=== PATIENT | male | born 1995 | race Caucasian/White ===

== ENCOUNTER 2016-10-18 11:04 | Emergency (ER) | payer MEDICAID ==
[2016-10-18 11:09] VITALS: TEMP 98.1; O2SAT 98
[2016-10-18] MEDS ORDERED: NS 1,000 ML IV ONE (11:16)
[2016-10-18 11:28] LABS: % IMMATURE GRANULYOCYTES 1.3 % (0.0-1.1); ABSOLUTE NRBC COUNT 0.05 10^3/uL (0-0.01); ADD DIFF? NO; ADD MORPH? NO; ADD SCAN? NO; ATYPICAL LYMPHOCYTE FLAG 20 (0-99); FRAGMENT RBC FLAG 20 (0-99); HEMATOCRIT 34.8 % (40.0-51.0); HEMOGLOBIN 11.3 g/dL (13.7-17.5); LEFT SHIFT FLG 40 (0-99); LIPEMIA HEMOLYSIS FLAG 80 (0-99); MEAN CELL HEMOGLOBIN 25.2 pg (27.9-34.1); MEAN CELL HEMOGLOBIN CONCENTR. 32.5 g/dL (32.4-36.7); MEAN CELL VOLUME 77.7 fL (81.5-99.8); MEAN PLATELET VOLUME 10.5 fL (8.7-11.7); NRBC-AUTO% 0.2 % (0.0-0.2); PLATELET CLUMPS FLAG 10 (0-99); PLATELET COUNT 605 10^3/uL (150-400); RED BLOOD CELL COUNT 4.48 10^6/uL (4.40-6.38); RED CELL DISTRIBUTION WIDTH 14.3 % (11.5-15.2)
[2016-10-18 11:38] LABS: INR 1.11 (0.83-1.16); PROTIME(PATIENT) 14.2 SEC (12.0-15.0)
[2016-10-18 11:39] LABS: APTT 29.3 SEC (23.0-38.0)
[2016-10-18 11:44] LABS: ANION GAP 19 mEq/L (8-16); CARBON DIOXIDE 25 mEq/l (22-31); CHLORIDE 92 mEq/L (97-110); GLOMERULAR FILTRATION RATE > 60; GLUCOSE 139 mg/dL (70-100); POTASSIUM 3.9 mEq/L (3.5-5.2); SODIUM 136 mEq/L (134-144)
--- NOTE | 2016-10-18 11:52 | EDPHY ---
HPI/HX/ROS/PE/MDM Narrative: CHIEF COMPLAINT: Ulcerative colitis flare HPI: The patient is a 21 y/o male, with a history of ulcerative colitis, complaining of an ulcerative colitis flare onset at the end of July and worsening this month. He initially noticed looser stool around Thanksgiving and stress through the holiday season caused symptoms to become more frequent. For the last two weeks he's had frequent bloody bowel movements and wakes up with nausea. He denies fever. He has associated intermittent 2/10 abdominal pain underneath his ribs that is generally worse in the morning. His symptoms feel exactly the same as previous flares. He has not had a flare for over a year and his last Remicade infusion was about one year ago. He plans to see his GI tomorrow. REVIEW OF SYSTEMS: Aside from elements discussed in the HPI, a comprehensive 10-point review of systems was reviewed and is negative. PMH: Ulcerative colitis previously on Remicade SOCIAL HISTORY: Lives in [place]. Employed. PHYSICAL EXAM: General:Patient is alert, in no acute distress. ENT:Eyes are normal to inspection. ENT inspection normal. Neck: Normal inspection. Full range of motion. Respiratory:No respiratory distress. Breath sounds normal bilaterally. Cardiovascular: Tachycardic regular rate and rhythm. Strong peripheral pulses. Normal cap refill. Abdomen:The abdomen is nontender to palpation. There are no peritoneal signs. There are normal bowel sounds. Back: Normal to inspection. No tenderness to palpation. Skin: Normal color. No rash. Warm and dry. Extremities: Normal appearance. Full range of motion. Neuro: Oriented x3. Normal motor function. Normal sensory function. ED Course: IV established. Labs drawn including CBC, CHEM, PTPTT. 1L IV NS administered. Study: CT of the Abdomen Indication: Pain Results: CT scan of the abdomen was obtained. The results of the study are Features of ulcerative colitis of the sigmoid colon. Otherwise negative CT examination of the abdomen and pelvis. The study was read by the radiologist, Dr. Valadez. I viewed the images myself on the PACS system. 1320: Consulted with Dr. Pastrana, GI. She recommends discharging him on prednisone and follow up as an outpatient as scheduled. MDM: This patient presents with signs and symptoms of ulcerative colitis flare. White blood cell count was elevated which prompted CT, but thankfully this is negative for acute process. 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 We discussed strict return precautions. Patient is comfortable with the plan to be discharged home. - Data Points Laboratory Results: Laboratory Results 10/18/16 11:15 10/18/16 11:15 10/18/16 11:15 WBC 23.32 H 10^3/uL (3.80-9.50) RBC 4.48 10^6/uL (4.40-6.38) Hgb 11.3 L g/dL (13.7-17.5) Hct 34.8 L % (40.0-51.0) MCV 77.7 L fL (81.5-99.8) MCH 25.2 L pg (27.9-34.1) MCHC 32.5 g/dL (32.4-36.7) RDW 14.3 % (11.5-15.2) Plt Count 605 H 10^3/uL (150-400) MPV 10.5 fL (8.7-11.7) Neut % (Auto) 79.2 H % (39.3-74.2) Lymph % (Auto) 6.7 L % (15.0-45.0) [place] % (Auto) 10.8 % (4.5-13.0) Eos % (Auto) 1.4 % (0.6-7.6) Baso % (Auto) 0.6 % (0.3-1.7) Nucleat RBC Rel Count 0.2 % (0.0-0.2) Absolute Neuts (auto) 18.45 H 10^3/uL (1.70-6.50) Absolute Lymphs (auto) 1.56 10^3/uL (1.00-3.00) Absolute Monos (auto) 2.53 H 10^3/uL (0.30-0.80) Absolute Eos (auto) 0.33 10^3/uL (0.03-0.40) Absolute Basos (auto) 0.15 H 10^3/uL (0.02-0.10) Absolute Nucleated RBC 0.05 H 10^3/uL (0-0.01) Immature Gran % 1.3 H % (0.0-1.1) Immature Gran # 0.30 H 10^3/uL (0.00-0.10) PT 14.2 SEC (12.0-15.0) INR 1.11 (0.83-1.16) APTT 29.3 SEC (23.0-38.0) Sodium 136 mEq/L (134-144) Potassium 3.9 mEq/L (3.5-5.2) Chloride 92 L mEq/L (97-110) Carbon Dioxide 25 mEq/l (22-31) Anion Gap 19 mEq/L (8-16) BUN 11 mg/dL (7-23) Creatinine 1.0 mg/dL (0.7-1.3) Estimated GFR > 60 Glucose 139 H mg/dL (70-100) Calcium 10.0 mg/dL (8.5-10.4) Medications Given: Discontinued Medications Sodium Chloride (Ns) 1,000 mls @ 0 mls/hr IV ONCE ONE PRN Reason: Wide Open Stop: 10/18/16 11:17 Last Admin: 10/18/16 11:26 Dose: 1,000 mls Prednisone (Prednisone) 20 mg PO EDNOW ONE Stop: 10/18/16 13:21 Last Admin: 10/18/16 13:24 Dose: 20 mg General Time Seen by Provider: 10/18/16 11:15 Initial Vital Signs: Initial Vital Signs Temperature (C) 36.7 C 10/18/16 11:06 Heart Rate 115 H 10/18/16 11:06 Respiratory Rate 22 H 10/18/16 11:06 Blood Pressure 137/97 H 10/18/16 11:06 O2 Sat (%) 98 10/18/16 11:06 O2 Delivery Mode Room Air Allergies/Adverse Reactions: No Known Allergies Allergy (Verified 10/18/16 11:06) Home Medications: Medication Instructions Recorded IRON 10/18/16 predniSONE 20 mg PO BID #14 tab 10/18/16 Departure - Departure Disposition: Home, Routine, Self-Care Clinical Impression: Ulcerative colitis Condition: Good Instructions: Ulcerative Colitis (ED) Additional Instructions: Take prednisone as prescribed. Follow up with your GI as scheduled. Return to the ED for worsening of condition. Referrals: Lisa Heath MD [Primary Care Provider] - As per Instructions Jose Raul Fatima MD [Medical Doctor] - As per Instructions Prescriptions: predniSONE 20 mg PO BID #14 tab Report Scribed for: Zechariah Gaston Report Scribed by: Roma Lane Date of Report: 10/18/16 Time of Report: 11:16 Physician Review and Approval Statement: Portions of this note were transcribed by an ED scribe. I personally performed the history, physical exam, and medical decision making; and confirm the accuracy of the information in the transcribed note.
[2016-10-18] MEDS ORDERED: IOPAMIDOL (ISOVUE-300) 100 ML BTL IV ONE (12:28)
--- NOTE | 2016-10-18 13:05 | CT ---
CT Scan of the Abdomen and Pelvis (With Contrast) Clinical Indications: Abdominal pain. History of UC. Technique: 85 mL of Isovue 300 were given intravenously by machine power injection. Multidetector he lical CT imaging was performed from the diaphragm to the symphysis pubis. Dose reduction techniques w ere utilized. Findings: Lung bases are clear. Liver, spleen, pancreas, and kidneys enhance normally. Adrenal glands appear normal. No peritoneal free fluid or air. In the right lower quadrant, the appendix is normal in appearance. CT PELVIS: No masses or free fluid. Submucosal fatty deposition within the sigmoid colon is compatibl e with a known history of ulcerative colitis. Impression: Features of ulcerative colitis of the sigmoid colon. Otherwise negative CT examination o f the abdomen and pelvis. Results called to Dr. Gaston at 1:00 PM.
[2016-10-18] MEDS ORDERED: predniSONE 20 MG TAB PO ONE (13:20)
[2016-10-18 13:37] VITALS: BP 129/78; PULSE 99; RESP 16
== END 2016-10-18 13:36 | disposition home or self-care (01) ==
DX: K51.90 Ulcerative colitis, unspecified, without complications (principal)
CPT/HCPCS: Q9967

== ENCOUNTER 2016-10-23 15:47 | Inpatient (IN) | payer MEDICAID ==
--- NOTE | 2016-10-23 16:10 | EDPHY ---
HPI/HX/ROS/PE/MDM Narrative: CHIEF COMPLAINT: Blood in stool HPI: The patient is a 21 y/o male, with a history of ulcerative colitis, returning to the ED for the second time this week complaining of bloody stool and abdominal pain worsening over the last 2 months. I evaluated him for the same complaint 5 days ago and discharged him with prescription and referral to GI for follow up. He saw GI on Wednesday and they ultimately put him on 50mg prednisone daily. He's continuing to have bloody stools and frequent bowel movements with associated abdominal pain, sweating. He notes his symptoms improve during the day after taking his morning dose of prednisone. His nausea has largely improved. GI referred him to the ED for IV steroid treatment. He is scheduled for a test in 1.5 weeks to determine if he can restart Remicade. REVIEW OF SYSTEMS: Aside from elements discussed in the HPI, a comprehensive 10-point review of systems was reviewed and is negative. PMH: Ulcerative colitis previously on Remicade SOCIAL HISTORY: Lives in [place] Prior medical records reviewed including ED visit 10/18/16 for UC flare. PHYSICAL EXAM: General:Patient is alert, in no acute distress. ENT:Eyes are normal to inspection. ENT inspection normal. Neck: Normal inspection. Full range of motion. Respiratory:No respiratory distress. Breath sounds normal bilaterally. Cardiovascular: Regular rate and rhythm. Strong peripheral pulses. Normal cap refill. Abdomen:The abdomen has mild diffuse tenderness. There are no peritoneal signs. There are normal bowel sounds. Back: Normal to inspection. No tenderness to palpation. Skin: Normal color. No rash. Warm and dry. Extremities: Normal appearance. Full range of motion. Neuro: Oriented x3. Normal motor function. Normal sensory function. ED Course: 1623: Consulted with CHASITY Dia. She agrees with IV steroids, but does not think he requires admission. Alternatively, she recommended offering hydrocortisone enema. I discussed this with the patient and he states the enemas have not worked previously. Plan for IV Solumedrol. IV established. CBC and CHEM ordered. 40mg IV Solumedrol administered. Patient's hematocrit is low at 28.1. Plan to consult GI again. 1751: Consulted with CHASITY Quezada. He recommends a larger dose of Solumedrol and admission to the hospital. I discussed this with the patient. He agrees with admission. Dr. Tran will accept admission. - Data Points Laboratory Results: Laboratory Results 10/23/16 17:00 10/23/16 17:00 10/23/16 10/23/16 17:25 17:00 WBC 23.56 H 10^3/uL (3.80-9.50) RBC 3.68 L 10^6/uL (4.40-6.38) Hgb 9.0 L g/dL (13.7-17.5) Hct 28.1 L % (40.0-51.0) MCV 76.4 L fL (81.5-99.8) MCH 24.5 L pg (27.9-34.1) MCHC 32.0 L g/dL (32.4-36.7) RDW 15.2 % (11.5-15.2) Plt Count 576 H 10^3/uL (150-400) MPV 10.4 fL (8.7-11.7) Neut % (Auto) Not Reported Lymph % (Auto) Not Reported [place] % (Auto) Not Reported Eos % (Auto) Not Reported Baso % (Auto) Not Reported Nucleat RBC Rel Count 0.6 H % (0.0-0.2) Absolute Neuts (auto) Not Reported Absolute Lymphs (auto) Not Reported Absolute Monos (auto) Not Reported Absolute Eos (auto) Not Reported Absolute Basos (auto) Not Reported Absolute Nucleated RBC 0.14 H 10^3/uL (0-0.01) Immature Gran % Not Reported Seg Neutrophils % 50 % Band Neutrophils % 21 % Lymphocytes % 12 % Monocytes % 12 % Eosinophils % Not Reported Metamyelocytes % 1 % Myelocytes % 3 % Promyelocytes % 1 % Immature Gran # Not Reported Absolute Seg Neuts 11.78 H 10^/uL (1.70-6.50) Absolute Band Neuts 4.95 H 10^3/uL (0.00-0.70) Absolute Lymphocytes 2.83 10^3/uL (1.00-3.00) Absolute Monocytes 2.83 H 10^3/uL (0.30-0.80) Absolute Eosinophils HAND I BLOCKER Absolute Metamyelocyte 0.24 H 10^3/mL (0.00-0.00) Absolute Myelocytes 0.71 H 10^3/mL (0.00-0.00) Absolute Promyelocytes 0.24 H 10^3/uL (0.00-0.00) Atypical Lymphocytes 1+ H Toxic Granulation PRESENT H Platelet Estimate ADEQUATE (ADEQ) Hypochromasia 1+ H Microcytic Cells 1+ H Smear Review By Pending Sodium 130 L mEq/L (134-144) Potassium 4.4 mEq/L (3.5-5.2) Chloride 89 L mEq/L (97-110) Carbon Dioxide 30 mEq/l (22-31) Anion Gap 11 mEq/L (8-16) BUN 17 mg/dL (7-23) Creatinine 0.8 mg/dL (0.7-1.3) Estimated GFR > 60 Glucose 136 H mg/dL (70-100) Calcium 9.1 mg/dL (8.5-10.4) C. difficile Tox (PCR) Pending Medications Given: Discontinued Medications Sodium Chloride (Ns) 1,000 mls @ 0 mls/hr IV ONCE ONE PRN Reason: Wide Open Stop: 10/23/16 16:32 Last Admin: 10/23/16 16:50 Dose: 1,000 mls Methylprednisolone Sodium Succinate (Solu-Medrol) 40 mg IVP EDNOW ONE Stop: 10/23/16 16:29 Last Admin: 10/23/16 17:07 Dose: 40 mg Methylprednisolone Sodium Succinate (Solu-Medrol) 85 mg IVP EDNOW ONE Stop: 10/23/16 17:55 Last Admin: 10/23/16 18:16 Dose: 85 mg General Time Seen by Provider: 10/23/16 16:00 Initial Vital Signs: Initial Vital Signs Temperature (C) 36.9 C 10/23/16 15:52 Heart Rate 104 H 10/23/16 15:52 Respiratory Rate 16 10/23/16 15:52 Blood Pressure 139/90 H 10/23/16 15:52 O2 Sat (%) 96 10/23/16 15:52 O2 Delivery Mode Room Air Allergies/Adverse Reactions: No Known Allergies Allergy (Verified 10/23/16 15:58) Home Medications: Medication Instructions Recorded predniSONE 20 mg PO BID #14 tab 10/18/16 Imodium 2 mg (*) 10/23/16 Departure - Departure Disposition: [facility] Clinical Impression: Ulcerative colitis Condition: Good Report Scribed for: Zechariah Gaston Report Scribed by: Roma Lane Date of Report: 10/23/16 Time of Report: 16:03 Physician Review and Approval Statement: Portions of this note were transcribed by an ED scribe. I personally performed the history, physical exam, and medical decision making; and confirm the accuracy of the information in the transcribed note.
[2016-10-23] MEDS ORDERED: methylPREDNISolone SOD SUCC 40 MG/ML VIAL IVP ONE (16:28)
[2016-10-23] MEDS ORDERED: NS 1,000 ML IV ONE (16:31)
[2016-10-23 17:11] LABS: ABSOLUTE NRBC COUNT 0.14 10^3/uL (0-0.01); ADD DIFF? YES; ADD MORPH? NO; ATYPICAL LYMPHOCYTE FLAG 60 (0-99); FRAGMENT RBC FLAG 20 (0-99); HEMATOCRIT 28.1 % (40.0-51.0); LIPEMIA HEMOLYSIS FLAG 80 (0-99); MEAN CELL HEMOGLOBIN 24.5 pg (27.9-34.1); MEAN CELL VOLUME 76.4 fL (81.5-99.8); MEAN PLATELET VOLUME 10.4 fL (8.7-11.7); NRBC-AUTO% 0.6 % (0.0-0.2); PLATELET CLUMPS FLAG 0 (0-99); PLATELET COUNT 576 10^3/uL (150-400); RED BLOOD CELL COUNT 3.68 10^6/uL (4.40-6.38); RED CELL DISTRIBUTION WIDTH 15.2 % (11.5-15.2)
[2016-10-23 17:14] LABS: ADD SCAN? NO; LEFT SHIFT FLG 300 (0-99)
[2016-10-23 17:29] LABS: ANION GAP 11 mEq/L (8-16); CALCIUM 9.1 mg/dL (8.5-10.4); CARBON DIOXIDE 30 mEq/l (22-31); CHLORIDE 89 mEq/L (97-110); CREATININE 0.8 mg/dL (0.7-1.3); GLOMERULAR FILTRATION RATE > 60; GLUCOSE 136 mg/dL (70-100); POTASSIUM 4.4 mEq/L (3.5-5.2); SODIUM 130 mEq/L (134-144)
[2016-10-23] MEDS ORDERED: methylPREDNISolone SOD SUCC 125 MG/2 ML VIAL IVP ONE (17:54)
[2016-10-23 17:55] LABS: HYPOCHROMIA 1+; MICROCYTES 1+; PLATELET ESTIMATE ADEQUATE (ADEQ)
[2016-10-23 17:56] LABS: TOXIC GRANULATION PRESENT
[2016-10-23] MEDS ORDERED: ACETAMINOPHEN 325 MG TAB PO PRN (20:02)
[2016-10-23] MEDS ORDERED: ONDANSETRON DISINTEGRATING 4 MG TAB PO PRN (20:02)
[2016-10-23] MEDS ORDERED: ONDANSETRON 4 MG/2 ML VIAL IVP PRN (20:02)
[2016-10-23] MEDS ORDERED: LOPERAMIDE HCL 2 MG CAP PO PRN (20:03)
[2016-10-23] MEDS ORDERED: NS 1,000 ML IV SCH (21:00)
--- NOTE | 2016-10-23 21:22 | GHP ---
[f rep st] HISTORY AND PHYSICAL DATE OF ADMISSION: 10/23/2016 DATE OF EVALUATION: 10/23/2016 CHIEF COMPLAINT: Ulcerative colitis flare. HISTORY OF PRESENT ILLNESS: This is a 21-year-old male with a history of ulcerative colitis since ag e 14. He had been controlled on Remicade. He did move here last fall and has been off his Remicade partly to see if he really needed it or not. He says that about he started developing a little bit of loose stools and this progressed into September with more blood in his stools and more f requent stooling. He did see Gastroenterology a week ago and they placed him on steroids. However, his bloody diarrhea is worsening, and thus he came to the Emergency Department. He is not having any fevers or chills. No abdominal pain. REVIEW OF SYSTEMS: A 10-point review of systems was obtained and it was negative. PAST MEDICAL HISTORY: Ulcerative colitis. MEDICATIONS: Prednisone recently diagnosed and Imodium. SOCIAL HISTORY: No smoking or alcohol. FAMILY HISTORY: No history of inflammatory bowel diseases. PHYSICAL EXAM: VITAL SIGNS: Afebrile, blood pressure is 140/86, heart rate 95, oxygen saturation 96 % on room air. GENERAL: The patient is well-developed, in no apparent distress. HEENT: Nonicteric sclerae. Extraocular movements intact. Moist mucous membranes. NECK: Supple. No thyromegaly. L UNGS: Good effort. Clear to auscultation bilaterally. CARDIOVASCULAR: Regular rate and rhythm. N o murmurs, no gallops. ABDOMEN: Positive bowel sounds. Soft, nontender, nondistended. No hepatosp lenomegaly. EXTREMITIES: No clubbing, cyanosis, or edema. SKIN: Without rash, intact. NEUROLOGIC : Alert and oriented x3. Moving all 4 extremities equally. PSYCH: Normal mood and affect. LABS: White blood cell count is elevated at 23, hemoglobin 9 with an MCV of 76, platelet count 576. Sodium 130, potassium 4.4, BUN is 17, creatinine 0.8, glucose 136. C diff is negative. ASSESSMENT: This is a 21-year-old male presenting with ulcerative colitis flare. PLAN: 1. Ulcerative colitis. GI has been consulted and will see him in the morning. They are recommendin g higher-dose steroids. 2. Microcytic anemia. Will check iron studies. 3. Hyponatremia. Probably due to dehydration. Will give him a little bit of fluid. DISPOSITION: Patient will be admitted under full admission status. The case was discussed with ER physician. Old records were reviewed and summarized in the HPI. /[id number]/MODL
[2016-10-24] MEDS: methylPREDNISolone SOD SUCC 125 MG/2 ML VIAL IVP SCH ×2 (00:02→05:14)
[2016-10-24 00:18] LABS: % SATURATION 7 % (20-55); TOTAL IRON BINDING CAPACITY 279 ug/dL (260-490)
[2016-10-24 06:01] LABS: ABSOLUTE NRBC COUNT 0.11 10^3/uL (0-0.01); ADD DIFF? YES; ADD MORPH? NO; ATYPICAL LYMPHOCYTE FLAG 50 (0-99); FRAGMENT RBC FLAG 20 (0-99); HEMATOCRIT 25.6 % (40.0-51.0); HEMOGLOBIN 8.1 g/dL (13.7-17.5); LIPEMIA HEMOLYSIS FLAG 80 (0-99); MEAN CELL HEMOGLOBIN 24.3 pg (27.9-34.1); MEAN CELL HEMOGLOBIN CONCENTR. 31.6 g/dL (32.4-36.7); MEAN CELL VOLUME 76.6 fL (81.5-99.8); MEAN PLATELET VOLUME 10.1 fL (8.7-11.7); NRBC-AUTO% 0.5 % (0.0-0.2); PLATELET CLUMPS FLAG 0 (0-99); PLATELET COUNT 537 10^3/uL (150-400); RED BLOOD CELL COUNT 3.34 10^6/uL (4.40-6.38); RED CELL DISTRIBUTION WIDTH 15.2 % (11.5-15.2)
[2016-10-24 06:25] LABS: ALANINE AMINOTRANSFERASE 86 IU/L (21-72); ALBUMIN 3.2 g/dL (3.5-5.0); ALKALINE PHOSPHATASE 83 IU/L (38-126); ANION GAP 11 mEq/L (8-16); ASPARTATE AMINOTRANSFERASE 31 IU/L (17-59); BILIRUBIN,TOTAL 0.5 mg/dL (0.1-1.4); CALCIUM 8.7 mg/dL (8.5-10.4); CARBON DIOXIDE 28 mEq/l (22-31); CHLORIDE 95 mEq/L (97-110); CREATININE 0.8 mg/dL (0.7-1.3); GLOMERULAR FILTRATION RATE > 60; GLUCOSE 121 mg/dL (70-100); POTASSIUM 4.4 mEq/L (3.5-5.2); SODIUM 134 mEq/L (134-144); TOTAL PROTEIN 6.5 g/dL (6.3-8.2)
[2016-10-24 06:33] LABS: ADD SCAN? NO; LEFT SHIFT FLG 300 (0-99)
[2016-10-24 09:01] LABS: HYPOCHROMIA 2+; PLATELET ESTIMATE INCREASED (ADEQ); POLYCHROMASIA 1+; TOXIC GRANULATION PRESENT
[2016-10-24] MEDS ORDERED: LORazepam 2 MG/ML INJ IVP PRN (10:19)
[2016-10-24] MEDS ORDERED: NS IV ONE (10:30)
[2016-10-24] MEDS ORDERED: INFLIXIMAB IV ONE (10:30)
[2016-10-24] MEDS ORDERED: ACETAMINOPHEN 325 MG TAB PO ONE ×2 (10:30→16:00)
[2016-10-24] MEDS: SODIUM FERRIC GLUCONAT/SUCROSE 125 MG in NS 100 ML IV SCH (10:40)
--- NOTE | 2016-10-24 11:42 | GCON ---
[f rep st] CONSULTATION GI INPATIENT CONSULTATION DATE OF CONSULTATION: 10/24/2016 I was requested to see the patient by Dr. Gaston HISTORY OF PRESENT ILLNESS: The patient is a 21-year-old white male whom I am asked to see in consultation for a chief complaint of colitis. He has had the above since the age of 14. Initially, it was felt to be ulcerative colitis, but the diagnosis has been changed to Crohn colitis. He had been doing quite well, in remission, on Remicade. Last fall, he decided to stop his Remicade to see how he would do on his own. Beginning around , he started to have the development of some diarrhea which became progressively worse to the point now where it includes blood, crampy abdominal pain. He is followed by my partner, Dr. Fatima, and recently was seen in the office by evan England. Because of the above, he was started on prednisone 40 mg daily. Because of continued symptoms, this was increased to 25 mg twice a day recently. However, because of continued significant bloody diarrhea, etc., he presented to the emergency department yesterday and was admitted to the hospital. Today, after receiving several doses of IV Solu-Medrol, he is doing somewhat better, with decreased number of bowel movements. Prior to admission, he typically would have 12 bowel movements on average in a day (4 in the morning and 8 at night). He has tried Asacol in the past, without benefit. 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 He underwent a stent. Apparently, all of the above resolved. A 2010 upper GI small-bowel follow- through did not mention any further stent in place. PAST MEDICAL HISTORY: As above; otherwise, noncontributory. MEDICATIONS: Outpatient medications include the above. Inpatient medications include: Zofran as needed, IV fluids, Solu-Medrol 80 mg q.6 hours IV, IV iron, Imodium as needed. ALLERGIES: No known drug allergies. BODY AFTER ALLERGIES: SOCIAL HISTORY: Denies smoking. FAMILY HISTORY: Negative for similar Crohn colitis. REVIEW OF SYSTEMS: Positive pertinent review of systems as per my HPI. Otherwise, his review of systems is negative to make a total of 10 systems. PHYSICAL EXAMINATION: GENERAL: Reveals a pale, pleasant, nontoxic gentleman. VITAL SIGNS: Stable. SKIN: Warm, dry. HEENT: Pupils equal, round, reactive to light and accommodation. Oropharynx without masses. Moist mucosa. NECK: Without thyromegaly. No lymphadenopathy. HEART: Normal S2. Normal PMI. LUNGS : Clear to auscultation and percussion anteriorly. ABDOMEN: Soft, nontender, without any masses. RECTAL: Deferred. EXTREMITIES: Without cyanosis, clubbing. NEUROLOGIC: He is grossly nonfocal with cranial nerves grossly intact. Orientation, insight appropriate. MUSCULOSKELETAL: Strength is grossly normal throughout. Normal station. LABORATORIES: Include the above. Recent normal ALT (slightly elevated on admission at 86). Normal alkaline phosphatase. Normal chemistries. White count 20,000. Hematocrit is decreased to 25.6%. Platelet count 537,000. C difficile toxin negative. October 18, 2016: CT consistent with colitis in the sigmoid. Hepatitis B core antibody negative. ASSESSMENT: 1. Bloody diarrhea with some crampy abdominal pain, etc.; almost certainly represents a flare of his known Crohn colitis. 2. 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 Now essentially normal liver tests. I do not suspect this is an active issue at this time. PLAN: 1. Agree with IV Solu-Medrol, but will decrease the dose to 40 mg IV piggyback q.12 hours. 2. Ativan as needed for anxiety, insomnia. 3. Agree with Imodium as needed. 4. Of note, his increased white blood cell count is due to his outpatient steroids. 5. Agree with IV iron for his anemia secondary to his bloody diarrhea. 6. We will restart his Remicade. We will give him a dose a day, 5 mg/kg IV infusion. Although he has been on a "drug holiday" for about 5 months, this should be safe. A 2014 study in the Journal of Clinical Gastroenterology and Hepatology showed that even in patients on a "drug holiday" for 15 months, there was a 78% response when they were restarted on Remicade, especially patients similar to him that were in remission in the past on Remicade. There were only 7 infusion reactions out of 128, and this typically occurred more with the 2nd or 3rd infusion. To decrease chances of antibody formation and an infusion reaction, I will start low-dose azathioprine at 50 mg daily. Besides his Solu-Medrol, we will premedicate him today with Tylenol and Benadryl. 7. As an outpatient, he will be getting [facility] Remicade antibody testing as a baseline. 8. As an outpatient, he will then get a repeat Remicade infusion at 2 weeks, 6 weeks, then every 8 weeks long-term. Thank you for allowing me to help in the management of this patient. Copy requested to: LELIA England /[id number]/MODL MTDD
[2016-10-24] MEDS: azaTHIOprine 50 MG TAB PO SCH (12:32)
--- NOTE | 2016-10-24 12:40 | HOSPPROG ---
Hospitalist Progress Note Assessment/Plan: DIAGNOSIS: -Acute flare of ulcerative colitis -Iron deficiency anemia with ongoing rectal bleeding PLANS: - begin iron replacement therapy -Continue high-dose steroid therapy -He will begin Remicade therapy here as well -Nutrition support I reviewed the patient's condition and care plan today with Dr. Obinna Lamas in detail SUBJECTIVE: some decrease in pain and stools although this morning has some slight increased compared to last night. No fevers, joint pains, rashes OBJECTIVE Vitals reviewed: stable without fever Exam: alert oriented skin warm dry color ok resps not labored lungs clear BSs heart regular abd soft with mild distention and mild diffuse tenderness, no guarding or rebound could, bowel sounds present limbs warm, no edema iv site ok laboratory data: Iron studies are consistent with severe iron deficiency and iron deficiency anemia Objective: Vital Signs Temp Pulse Resp BP Pulse Ox 36.9 C 80 18 142/89 H 94 10/24/16 12:33 10/24/16 12:33 10/24/16 12:33 10/24/16 12:33 10/24/16 12:33 Laboratory Results 10/24/16 05:14 10/24/16 05:14 10/23/16 10/24/16 10/25/16 06:59 06:59 06:59 Intake Total 1710 Balance 1710 ICD10 Worksheet Patient Problems: Problems Problem Status Diagnosed Ulcerative colitis Acute
[2016-10-24] MEDS: methylPREDNISolone SOD SUCC 40 MG/ML VIAL IVP SCH (21:08)
[2016-10-25 05:56] LABS: HEMATOCRIT 26.6 % (40.0-51.0); HEMOGLOBIN 8.3 g/dL (13.7-17.5)
[2016-10-25 08:20] VITALS: BP 132/93; RESP 16; TEMP 97.5; O2SAT 97
[2016-10-25] MEDS: azaTHIOprine 50 MG TAB PO SCH (09:24)
[2016-10-25] MEDS: SODIUM FERRIC GLUCONAT/SUCROSE 125 MG in NS 100 ML IV SCH (09:24)
[2016-10-25] MEDS: methylPREDNISolone SOD SUCC 40 MG/ML VIAL IVP SCH (09:24)
[2016-10-25 09:25] VITALS: PULSE 87
--- NOTE | 2016-10-25 12:37 | SOAPPROG ---
S[facility] Progress Note Assessment/Plan: Assessment/Plan: Crohn's colitis. Now, doing well, with much less bloody diarrhea. Received remicade yesterday, without problems. - change to prednisone 20 mg p.o. bid - from a G.I. standpoint, ok to d/c home. As an outpt., would recommend: - azathioprine 50 mg p.o. daily - prednisone taper: 20 mg bid for ten days, then 15 mg bid for ten days, then 10 mg bid for ten days, then 5 mg bid for ten days, then none - further oral iron replacement therapy, if felt needed - ok to use imodium prn or preventatively I will sign off. I will arrange his repeat remicade treatments, through Dr. Fatima and his nurse. With starting azathioprine, I will arrange a CBC in about 10 days and in about 30 days. He will be getting [facility] remicade Ab testing as a baseline next week. Finally, I'll arrange his outpt. f/u with Dr. Fatima. Please otherwise call if I can be of further help [phone]). Thanks! 10/25/16 12:31 Subjective: cc: Crohn's colitis flare Doing much better. Less diarrhea last night, with the beginnings of some form. Ambulating, tolerating p.o. without problems. Less rectal bleeding. Objective: Vital Signs Temp Pulse Resp BP Pulse Ox 36.4 C 87 16 132/93 H 97 10/25/16 08:18 10/25/16 08:18 10/25/16 08:18 10/25/16 08:18 10/25/16 08:18 Laboratory Results 10/25/16 05:35 10/24/16 05:14 10/24/16 10/25/16 10/26/16 05:59 05:59 05:59 Intake Total 1710 1000 960 Balance 1710 1000 960 Physical Exam - Physical Exam General Appearance: WD/WN, alert, no apparent distress EENT: PERRL/EOMI, normal ENT inspection, pharynx normal, TMs normal Neck: non-tender, full range of motion, supple, normal inspection Respiratory: chest non-tender, lungs clear, normal breath sounds Cardiac/Chest: normal peripheral pulses, regular rate, rhythm Peripheral Pulses: 2+: carotid (R), carotid (L), femoral (R), femoral (L), dorsalis-pedis (R), dorsalis-pedis (L) Abdomen: normal bowel sounds, non-tender, soft Male Genitalia: deferred Rectal: deferred Back: Normal inspection Skin: normal color, warm/dry Lymphatic: no adenopathy Extremities: normal range of motion, non-tender, normal inspection, normal capillary refill Neuro/Psych: no motor/sensory deficits, alert, normal mood/affect, oriented x 3 ICD10 Worksheet Patient Problems: Problems Problem Status Diagnosed Ulcerative colitis Acute
--- NOTE | 2016-10-25 17:07 | PDDCSUM ---
Discharge Summary Discharge Summary: DISCHARGE SUMMARY NOTE DISCHARGE DIAGNOSES: Flare of ulcerative colitis Iron deficiency anemia CONSULTANTS: Dr. Yeboah [facility] COURSE SUMMARY: This patient with a long history of ulcerative colitis has been off medication for approximately 16 months. He came in at this time with gradually progressive but now severe abdominal cramping with 08/2014 stools per day and blood in his stools. He had not been losing weight did not have extra colonic symptoms. His examination other than his abdominal examination was unremarkable. His abdomen did not indicate any acute surgical indication. The patient had stools negative for C difficile. He was started on steroids with intravenous Solu-Medrol and responded quite well to this. He was also started on Imuran here. At this time is stools are greatly decreased in number. There is no bleeding, and his pain is much decreased and he is eating better. He was given a dose of Remicade here which she has taken for 2 prolonged courses in the past. At this time he is stable for discharge for home. MEDICATION CHANGES: Addition of Imuran, prednisone taper, and he will be set up for outpatient Remicade through Dr. Staton office. FOLLOW-UP PLAN: Follow up with Dr. Charles closely Greater than 35 minutes bedside and care coordination time today
[2016-10-25] MEDS ORDERED: predniSONE 20 MG TAB PO SCH (18:00)
== END 2016-10-25 14:58 | disposition home or self-care (01) | DRG 387 ==
LOC: F1N 18:25
PROVIDERS: ADMIT Internal Medicine; ATTEND Internal Medicine
DX: K51.90 Ulcerative colitis, unspecified, without complications (principal); D50.9 Iron deficiency anemia, unspecified; E86.0 Dehydration
CPT/HCPCS: 96374; J1200; J1745; J2916

== ENCOUNTER 2017-02-10 10:56 | Day surgery (SDC) | payer MEDICAID ==
[2017-02-10] MEDS ORDERED: LIDOCAINE 1% 2 ML INJ ID PRN (11:30)
[2017-02-10] MEDS ORDERED: NS 500 ML IV SCH (11:30)
[2017-02-10] MEDS ORDERED: MIDAZOLAM 2 MG/2 ML VIAL ONE ×2 (12:18→12:31)
[2017-02-10] MEDS ORDERED: fentaNYL 100 MCG/2 ML INJ ONE (12:18)
--- NOTE | 2017-02-10 19:12 | GPN ---
[f rep st] PROCEDURE NOTE PROCEDURE PERFORMED: Flexible sigmoidoscopy with biopsy INDICATION: Disease activity as testament for Crohn disease of the large intestine, on Remicade and azathioprine, status post prednisone taper, feeling well with no current symptoms. Evaluate for any active disease. PREOPERATIVE DIAGNOSIS: Rule out active Crohn disease. POSTOPERATIVE DIAGNOSIS: Moderate colitis to the extent of the exam, which was the descending colon. INFORMED CONSENT: I had a detailed discussion with the patient regarding the procedure, alternatives, benefits, and risks including bleeding, perforation, infection, risk of medication. Informed consent was signed and witnessed. COMPLICATIONS: None immediate. MEDICATIONS USED: Versed 8 mg IV, fentanyl 100 mcg IV. DESCRIPTION OF PROCEDURE: Patient was placed in the left lateral decubitus position. After adequate sedation, a visual and digital anorectal exam was performed. The video colonoscope was inserted via rectum and advanced under visualization into the descending colon. Throughout the extent of the exam was active erosions, superficial ulcerations, erythema, and edema. This was scattered. The rectum was somewhat more spared than the sigmoid and descending colon. Biopsy was taken from the descending colon, sigmoid colon, and rectum; all in one jar labeled left colon. The anoscope was then completely withdrawn, confirming the above findings. The patient tolerated the procedure well and was returned to the recovery room in a satisfactory condition. IMPRESSION: Moderate active and macroscopic active colitis to the extent of the exam, status post biopsies. RECOMMENDATIONS: 1. Follow up pathology. 2. Expect it will be active inflammation. 3. After reviewing the biopsies, I will alter his medications. I have to decide whether I would re-treat with steroids, increase azathioprine, increase Remicade, or combination of the above. In addition, we may consider re-adding mesalamine medication. 4. Discharge home when stable. 5. Follow up in the office. I will need to re-schedule him at a sooner date pending the biopsy results above. 6. Follow up with primary care physician as scheduled. Thank you for allowing me to participate in patient's healthcare. Do not hesitate to call me with any questions. /[id number]/MODL MTDD
== END 2017-02-10 13:40 | disposition home or self-care (01) ==
LOC: FSGY 10:56
PROVIDERS: ATTEND Internal Medicine Gastroenterology
DX: K52.9 Noninfective gastroenteritis and colitis, unspecified (principal); Z87.19 Personal history of other diseases of the digestive system; D50.0 Iron deficiency anemia secondary to blood loss (chronic); Z79.52 Long term (current) use of systemic steroids
CPT/HCPCS: J2250; J3010

== ENCOUNTER 2017-03-09 11:54 | Day surgery (SDC) | payer MEDICAID ==
[2017-03-09] MEDS ORDERED: MIDAZOLAM 2 MG/2 ML VIAL ONE ×2 (12:17)
[2017-03-09] MEDS ORDERED: fentaNYL 100 MCG/2 ML INJ ONE (12:17)
[2017-03-09 12:24] VITALS: O2SAT 96
[2017-03-09] MEDS ORDERED: NS 1,000 ML IV SCH (12:30)
--- NOTE | 2017-03-09 12:54 | PDGENHP ---
History & Physical Outpatient Chief Complaint: crohns colon History of Present Illness: eval for dz activity Pertinent Past, Social, Family History: no surgery. Crohns no other mecdical illness Relevant Physical Exam: cta, s1s2, rrr. +bs, soft NT. a+Ox3 Cardiorespiratory Assessment: cta, rrr. p2 pt for flex-sig with IV sedation
[2017-03-09] MEDS ORDERED: NS 500 ML IV SCH (13:00)
--- NOTE | 2017-03-09 13:05 | PDPROPOC ---
Sedation Plan of Care Sedation Plan of Care: vital signs stable, mental status noted, patient educated of risks, benefits, alternatives, patient can tolerate sedation ASA Classification: ASA 2 Planned drugs: versed and fentanyl Mallampati Score: Class 2 332 Rule: 332
--- NOTE | 2017-03-09 13:26 | POSTOPPROG ---
Post Op Note Date of Operation: 03/09/17 Surgeon: Jose Raul Fatima Anesthesia: IV Sedation (versed 8 mg) Pre-op Diagnosis: crohn's colitis Post-op Diagnosis: erythematous mucosa, no active ulcerations Indication: dz activity assessment Procedure: flex-sig with bx Findings: aleterd vascularity and eryhem of tissue no ulcerations Inf/Abcess present in the surg proc area at time of surgery?: No EBL: Minimal (few ml) Complications: none immediate
[2017-03-09 13:54] VITALS: BP 118/81; PULSE 67; RESP 16; TEMP 98.4
== END 2017-03-09 13:57 | disposition home or self-care (01) ==
LOC: FSGY 11:54
PROVIDERS: ATTEND Internal Medicine Gastroenterology
DX: K50.10 Crohn's disease of large intestine without complications (principal)
CPT/HCPCS: J2250; J3010